=== PATIENT | female | born 2000 | race Caucasian/White ===

== ENCOUNTER 2022-12-30 11:12 | Emergency (ER) | payer OTHER ==
--- OUTSIDE RECORDS SUMMARY | 2022-12-30 11:15 | XMS REPORT | Continuity of Care Document ---
:2000 Author Organization [facility] t Address [address] [place] [id number] Care Team Providers Name Role Phone Unavailable Unavailable Unavailable Problems This patient has no known problems. Allergies, Adverse Reactions, Alerts This patient has no known allergies or adverse reactions. Medications This patient has no known medications. Procedures This patient has no known procedures. Results This patient has no known results.
--- NOTE | 2022-12-30 11:34 | ER ---
Nurse's Notes [facility] Name: Waqar Young Age: 22 yrs Sex: Female : 2000 Arrival Date: 12/30/2022 Time: 11:12 Bed IW2 Private MD: Diagnosis: Streptococcal pharyngitis Presentation: 12/30 11:31 Chief complaint: Patient states: cough, congestion, family member tested positive for iw strep yesterday. Coronavirus screen: At this time, the client does not indicate any symptoms associated with coronavirus-19. Ebola Screen: Patient negative for fever greater than or equal to 101.5 degrees Fahrenheit, and additional compatible Ebola Virus Disease symptoms Patient denies exposure to infectious person. Patient denies travel to an Ebola-affected area in the 21 days before illness onset. No symptoms or risks identified at this time. Initial Sepsis Screen: Does the patient meet any 2 criteria? No. Patient's initial sepsis screen is negative. Does the patient have a suspected source of infection? No. Patient's initial sepsis screen is negative. Risk Assessment: Do you want to hurt yourself or someone else? Patient reports no desire to harm self or others. 11:31 Method Of Arrival: Ambulatory iw 11:31 Acuity: HELEN 4 iw Triage Assessment: 11:35 General: Appears in no apparent distress. Behavior is. Respiratory: Respiratory effort iw is even, Respiratory pattern is regular, symmetrical. Historical: - Allergies: 11:45 No Known Allergies; iw Screenin:44 [facility] ED Fall Risk Assessment (Adult) Score/Fall Risk Level 0 - 2 = Low Risk. Abuse iw screen: Denies threats or abuse. Denies injuries from another. Nutritional screening: No deficits noted. Tuberculosis screening: No symptoms or risk factors identified. Assessment: 11:35 General: Appears in no apparent distress. Behavior is calm, cooperative. Pain: iw Complains of pain in throat. Cardiovascular: Patient's skin is warm and dry. Respiratory: Respiratory effort is even, unlabored, Respiratory pattern is regular, Breath sounds are clear bilaterally. Derm: Skin is intact, is healthy with good turgor. Musculoskeletal: Range of motion: intact in all extremities. Vital Signs: 11:45 BP 121 / 66; Pulse 59; Resp 16; Temp 98.4; Pulse Ox 100% on R/A; iw ED Course: 11:23 Patient arrived in ED. ts1 11:23 Evette Damon FNP-C [facility]. kb 11:23 Weston Vera MD is Attending Physician. kb 11:32 Triage completed. iw 11:35 Arm band placed on. iw 11:43 Kandy Dang, RN is Primary Nurse. iw 11:44 No provider procedures requiring assistance completed. Patient did not have IV access iw during this emergency room visit. Administered Medications: No medications were administered Medication: 11:40 VIS not applicable for this client. iw Outcome: 11:33 Discharge ordered by MD. kb 11:44 Discharged to home ambulatory. iw 11:44 Condition: good 11:44 Condition: good 11:44 Discharge instructions given to patient, Instructed on discharge instructions, follow up and referral plans. Demonstrated understanding of instructions, follow-up care, medications, Prescriptions given X 1. 11:45 Patient left the ED. iw Signatures: Evette Damon FNP-C [address] [facility]-Kandy Gonzalez, RN RN iw Susie Hearn PAS PAS ts1
--- NOTE | 2022-12-30 11:34 | EDPHYS ---
Physician Documentation [facility] Name: Waqar Young Age: 22 yrs Sex: Female : 2000 Arrival Date: 12/30/2022 Time: 11:12 Bed IW2 Private MD: ED Physician Weston Vera HPI: 12/30 13:26 This 22 yrs old Female presents to ER via Ambulatory with complaints of Cough, kb Congestion. 11:24 Pt reports sore throat and congestion that started today. Denies fever. Son tested kb positive for strep last night so she came in when symptoms began to get ahead of it. 13:27 The patient presents with sore throat. The patient describes throat pain as constant. kb Onset: The symptoms/episode began/occurred today. Severity of symptoms: At their worst the symptoms were mild, in the emergency department the symptoms are unchanged. Modifying factors: The symptoms are alleviated by nothing, the symptoms are aggravated by swallowing, Patient's oral intake status: good. Associated signs and symptoms: Pertinent positives: Sore throat congestion, Pertinent negatives fever. The patient has not experienced similar symptoms in the past, but family has similar symptoms, son. The patient has not recently seen a physician. Historical: - Allergies: 11:45 No Known Allergies; iw ROS: 13:27 Constitutional: Negative for fever, chills, and weight loss. kb 13:27 ENT: Positive for sinus congestion, sore throat. 13:27 All other systems are negative. Exam: 13:27 Constitutional: This is a well developed, well nourished patient who is awake, alert, kb and in no acute distress. Head/Face: Normocephalic, atraumatic. Cardiovascular: Regular rate and rhythm with a normal S1 and S2. No gallops, murmurs, or rubs. No pulse deficits. Respiratory: Respirations even and unlabored. No increased work of breathing. Talking in full sentences Abdomen/GI: Soft, non-tender. No distention Skin: Warm, dry with normal turgor. Normal color. MS/ Extremity: Pulses equal, no cyanosis. Neurovascular intact. Full, normal range of motion. Neuro: Awake and alert, GCS 15, oriented to person, place, time, and situation. Moves all extremities. Normal gait. 13:27 ENT: Posterior pharynx: erythema, that is moderate. Vital Signs: 11:45 BP 121 / 66; Pulse 59; Resp 16; Temp 98.4; Pulse Ox 100% on R/A; iw MDM: 11:23 Patient medically screened. kb 13:28 Differential diagnosis: flu, covid, strep, pharyngitis. Data reviewed: vital signs, kb nurses notes. Test considered but Not performed: Labs: strep, covid and flu tests considered, but would not change plan of treatment. Counseling: I had a detailed discussion with the patient and/or guardian regarding the historical points, exam findings, and any diagnostic results supporting the discharge/admit diagnosis, the need for outpatient follow up, a family practitioner, to return to the emergency department if symptoms worsen or persist or if there are any questions or concerns that arise at home. Administered Medications: No medications were administered Disposition Summary: 12/30/22 11:33 Discharge Ordered Location: Home kb Condition: Stable kb Diagnosis - Streptococcal pharyngitis kb Followup: kb - With: Emergency Department - When: As needed - Reason: Worsening of condition Followup: kb - With: Private Physician - When: 2 - 3 days - Reason: Recheck today's complaints, Continuance of care, Re-evaluation by your physician Discharge Instructions: - Discharge Summary Sheet kb - Strep Throat, Adult, [id number] kb Forms: - Medication Reconciliation Form kb - Thank You Letter kb - Antibiotic Education kb - Prescription Opioid Use kb - Patient Portal Instructions kb - Leadership Thank You Letter kb Prescriptions: - Amoxicillin 875 mg Oral Tablet - take 1 tablet by ORAL route every 12 hours for 10 days; 20 tablet; Refills: 0, kb Product Selection Permitted Signatures: Dispatcher [employer] Evette England, NET APPLICATIONS DEVELOPER-C NET APPLICATIONS DEVELOPER-Kandy Gonzalez, RN RN iw Corrections: (The following items were deleted from the chart) 13:28 11:24 sore throat, congestion today. kb kb
[2022-12-30 11:54] VITALS: BP 121/66; TEMP 98.4; O2SAT 100
== END 2022-12-30 11:45 | disposition home or self-care (01) ==
LOC: ER 11:12
DX: J02.0 Streptococcal pharyngitis (principal)
CPT/HCPCS: 99283

== ENCOUNTER 2023-02-27 12:04 | Emergency (ER) | payer OTHER, SELFPAY ==
--- NOTE | 2023-02-27 12:23 | ER ---
Nurse's Notes [facility] Name: Waqar Young Age: 22 yrs Sex: Female : 2000 Arrival Date: 02/27/2023 Time: 12:04 Bed IW1 Private MD: Diagnosis: Postconcussional syndrome Presentation: 02/27 12:11 Chief complaint: Patient states: "On Saturday, I bumped heads with someone and have had a mb9 headache. I'm sensitive to light and noise." Pt denies LOC and does not take blood thinners. Coronavirus screen: At this time, the client does not indicate any symptoms associated with coronavirus-19. Ebola Screen: No symptoms or risks identified at this time. Initial Sepsis Screen: Does the patient meet any 2 criteria? No. Patient's initial sepsis screen is negative. Does the patient have a suspected source of infection? No. Patient's initial sepsis screen is negative. Risk Assessment: Do you want to hurt yourself or someone else? Patient reports no desire to harm self or others. Onset of symptoms was February 27, 2023. 12:11 Method Of Arrival: Ambulatory mb9 12:11 Acuity: HELEN 5 mb9 Triage Assessment: 12:13 General: Appears in no apparent distress. Behavior is calm, cooperative. Pain: mb9 Complains of pain in head Pain does not radiate. Quality of pain is described as throbbing, Pain began 2-3 days ago. Is intermittent. EENT: No signs and/or symptoms were reported regarding the EENT system. Neuro: Rudolph Agitation-Sedation Scale (RASS): 0 - Alert and Calm Level of Consciousness is awake, alert, obeys commands, Oriented to person, place, time, situation, Appropriate for age Pupils are PERRLA, Reports headache. Cardiovascular: Patient's skin is warm and dry. Respiratory: Airway is patent Respiratory effort is even, unlabored, Respiratory pattern is regular, symmetrical. GI: Patient currently denies nausea, vomiting. : No signs and/or symptoms were reported regarding the genitourinary system. Derm: Skin is pink, warm \\T\\ dry. Musculoskeletal: Range of motion: intact in all extremities. Historical: - Allergies: 12:12 No Known Allergies; mb9 - Home Meds: 12:12 None [Active]; mb9 - PMHx: 12:12 None; mb9 - PSHx: 12:12 None; mb9 - Immunization history:: Adult Immunizations up to date. - Social history:: Smoking status: Patient denies any tobacco usage or history of. Screenin:14 [facility] ED Fall Risk Assessment (Adult) History of falling in the last 3 months, mb9 including since admission No falls in past 3 months (0 pts) Confusion or Disorientation No (0 pts) Intoxicated or Sedated No (0 pts) Impaired Gait No (0 pts) Mobility Assist Device Used No (0 pt) Altered Elimination No (0 pt) Score/Fall Risk Level 0 - 2 = Low Risk Oriented to surroundings, Maintained a safe environment, Educated pt \\T\\ family on fall prevention, incl call for assistance when getting out of bed. Abuse screen: Denies threats or abuse. Nutritional screening: No deficits noted. Tuberculosis screening: No symptoms or risk factors identified. Assessment: 12:14 Reassessment: see triage assessment. mb9 Vital Signs: 12:11 BP 118 / 87; Pulse 84; Resp 16; Temp 97.5; Pulse Ox 100% on R/A; Weight 49.9 kg; Height mb9 5 ft. 2 in. ; 12:11 Body Mass Index 20.12 (49.90 kg, 157.48 cm) mb9 ED Course: 12:08 Patient arrived in ED. im 12:09 Hugh Lazaro MD is Attending Physician. ec2 12:12 Triage completed. mb9 12:13 Arm band placed on. mb9 12:14 Adult w/ patient. Client placed on continuous cardiac and pulse oximetry monitoring. mb9 NIBP monitoring applied. 12:14 No provider procedures requiring assistance completed. mb9 12:15 Marcy Sidhu, NEREYDA is Primary Nurse. mb9 12:21 Patient did not have IV access during this emergency room visit. mb9 Administered Medications: No medications were administered Medication: 12:14 VIS not applicable for this client. mb9 Outcome: 12:23 Discharge ordered by . ec2 12:25 Discharged to home ambulatory, mb9 12:25 Condition: stable 12:25 Discharge instructions given to patient, Instructed on discharge instructions, follow up and referral plans. Demonstrated understanding of instructions, follow-up care, medications, Prescriptions given X 1, 12:26 Patient left the ED. mb9 Signatures: Marcy Sidhu RN RN mb9 Mellisa Jett Edwin, MD MD ec2 Corrections: (The following items were deleted from the chart) 12:15 12:11 Acuity: HELEN 4 mb9 mb9 12:21 12:11 Acuity: HELEN 3 mb9 mb9
--- NOTE | 2023-02-27 12:23 | EDPHYS ---
Physician Documentation [facility] Name: Waqar Young Age: 22 yrs Sex: Female : 2000 Arrival Date: 02/27/2023 Time: 12:04 Bed IW1 Private MD: ED Physician Hugh Lazaro HPI: 02/27 12:23 This 22 yrs old Female presents to ER via Ambulatory with complaints of Head ec2 Injury Without LOC-Adult - [id number], Headache. 12:23 Patient arrives today due to concern for frontal headache. Patient states that she had ec2 a head injury approximately 5 days ago. Patient reports that she had bumped her head against her significant other said and subsequently has been having head pain since that time. Patient reports no nausea or vomiting, no blood thinner use, no loss of consciousness, no neck pain. Patient states that she has taken Tylenol with minimal alleviation symptoms. Patient reports no history of bleeding disorders, no familial history of such.. Historical: - Allergies: 12:12 No Known Allergies; mb9 - Home Meds: 12:12 None [Active]; mb9 - PMHx: 12:12 None; mb9 - PSHx: 12:12 None; mb9 - Immunization history:: Adult Immunizations up to date. - Social history:: Smoking status: Patient denies any tobacco usage or history of. ROS: 12:23 Constitutional: as per hpi ec2 Exam: 12:23 Constitutional: GEN: NAD Head: atraumatic Eyes: EOMI Ears: External ears are ec2 normal. CV: regular rate LUNGS: no respiratory distress ABD: non-distended SKIN: no evidence of rashes MSK: no evidence of trauma NEURO: moves all extremities equally, cranial nerves II through XII intact, strength intact in all 4 extremities, no no pronator drift appreciated, sensation intact throughout. Vital Signs: 12:11 BP 118 / 87; Pulse 84; Resp 16; Temp 97.5; Pulse Ox 100% on R/A; Weight 49.9 kg; Height mb9 5 ft. 2 in. ; 12:11 Body Mass Index 20.12 (49.90 kg, 157.48 cm) mb9 MDM: 12:09 Patient medically screened. ec2 12:23 Data reviewed: vital signs. ED course: Patient arrives today due to concern for ec2 headache symptoms ongoing for 5 days after an injury to the head. Examination remarkable for neuro intact individual is otherwise in no acute distress. Presentation is consistent with concussion, I have a low clinical suspicion for skull fracture or intracranial brain bleed given the patient's story and examination. I discussed possible IV placement as well as IV medications to help with her headache and concussive symptoms however she declined and felt comfortable with outpatient management, I also discussed possible CT imaging however did not feel this was beneficial and she agreed. Will discharge home with facial Reglan as well as concussion symptom management. Return precautions given. . Administered Medications: No medications were administered Disposition Summary: 02/27/23 12:23 Discharge Ordered Notes: Location: Home ec2 Condition: Stable ec2 Diagnosis - Postconcussional syndrome ec2 Discharge Instructions: - Discharge Summary Sheet mb9 - Post-Concussion Syndrome, [id number] ec2 Forms: - Work release form mb9 - Medication Reconciliation Form ec2 - Thank You Letter ec2 - Antibiotic Education ec2 - Prescription Opioid Use ec2 - Patient Portal Instructions ec2 - Leadership Thank You Letter ec2 Prescriptions: - Reglan 10 mg Oral Tablet - take 1 tablet ORAL route every 6 hours take 30 minutes before meals and at ec2 bedtime; 20 tablet; Refills: 0, Product Selection Permitted Signatures: Marcy Sidhu RN RN mb9 Hugh Lazaro MD MD ec2 Corrections: (The following items were deleted from the chart) 12:25 12:10 This 22 yrs old Female presents to ER via Unassigned with complaints of Head ec2 Injury Without LOC-Adult - [id number], Headache. ec2
--- OUTSIDE RECORDS SUMMARY | 2023-02-27 12:29 | XMS REPORT | Continuity of Care Document ---
:2000 Author Organization [facility] t Address [address] [place] [id number] Care Team Providers Name Role Phone Unavailable Unavailable Unavailable Problems This patient has no known problems. Allergies, Adverse Reactions, Alerts This patient has no known allergies or adverse reactions. Medications This patient has no known medications. Procedures This patient has no known procedures. Results This patient has no known results.
[2023-02-27 13:06] VITALS: BP 118/87; TEMP 97.5; O2SAT 100
== END 2023-02-27 12:26 | disposition home or self-care (01) ==
LOC: ER 12:04
DX: R51.9 Headache, unspecified (principal); F07.81 Postconcussional syndrome
CPT/HCPCS: 99283